=== PATIENT | female | born 1995 | race Caucasian/White ===

== ENCOUNTER 2024-11-13 09:35 | Day surgery (SDC) | payer OTHER ==
[~2024-11-13] VITALS: Ht 167.6 cm; Wt 75.3 kg
[~2024-11-13 09:35] MED LIST: AMPH1CAP16; CETI-24; HYDR-643; LEXA1TAB2; LR 1,000 ML IV SCH; PANT40TA29; SYNT25TA; VIBE75TA; VITA100093
[2024-11-13 10:06] LABS: PLATELET COUNT, AUTOMATED 296 10^3/uL (150-450)
[2024-11-13] MEDS ORDERED: ROCURONIUM BROMIDE 50MG/5ML VIAL As Ordered ONE (10:10)
[2024-11-13] MEDS ORDERED: dexAMETHasone 4 MG/ML 1 ML VIAL As Ordered ONE (10:10)
[2024-11-13] MEDS ORDERED: LIDOCAINE 2% INJ 100 MG/5 ML SYRINGE As Ordered ONE (10:10)
[2024-11-13] MEDS ORDERED: MIDAZOLAM INJ 2 MG/2 ML VIAL As Ordered ONE (10:11)
[2024-11-13] MEDS: SCOPOLAMINE 1MG TRANSDERMAL PATCH TOP ONE (10:25)
[2024-11-13] MEDS: ceFAZolin SOD 2 GM IV ONCE IV ONE (11:27)
[2024-11-13] MEDS: metroNIDAZOLE 500 MG in IV 1 EA IV ONE (11:35)
[2024-11-13] MEDS ORDERED: SUGAMMADEX SODIUM 200 MG/2 ML VIAL As Ordered ONE (11:43)
[2024-11-13] MEDS ORDERED: ONDANSETRON 4MG 2ML VIAL As Ordered ONE (11:43)
[2024-11-13] MEDS ORDERED: KETOROLAC 30 MG/ML 1 ML VIAL As Ordered ONE (11:43)
[2024-11-13] MEDS ORDERED: HYDROmorphone HCL 2 MG/ML 1 ML VIAL As Ordered ONE (12:12)
[2024-11-13] MEDS: TRANEXAMIC ACID 100 MG/ML 10ML VIAL As Ordered ONE (13:26)
[2024-11-13] MEDS ORDERED: LR 1,000 ML IV SCH (13:35)
[2024-11-13] MEDS ORDERED: HYDROMORPHONE HCL 0.5 MG/0.5 ML SYRINGE IV PRN (13:35)
[2024-11-13] MEDS ORDERED: ONDANSETRON 4MG 2ML VIAL IV PRN (13:35)
[2024-11-13 15:40] VITALS: BP 123/67; TEMP 98.3; O2SAT 100
== END 2024-11-13 15:45 | disposition home or self-care (01) ==
LOC: M SDC 09:35
PROVIDERS: ATTEND Obstetrics & Gynecology
DX: N80.329 Endometriosis of the posterior cul-de-sac, unspecified depth (principal); D25.9 Leiomyoma of uterus, unspecified; N83.8 Other noninflammatory disorders of ovary, fallopian tube and broad ligament; N80.203 Endometriosis of bilateral fallopian tubes, unspecified depth; N80.00 Endometriosis of the uterus, unspecified; N93.0 Postcoital and contact bleeding; E03.9 Hypothyroidism, unspecified; Z79.890 Hormone replacement therapy; Z79.899 Other long term (current) drug therapy; Z90.89 Acquired absence of other organs
CPT/HCPCS: 36415; 58571; 58662; 81025; 85027; 86850; 86900; 86901; 88307; J0665; J0690; J1100; J1171; J1836; J1885; J2250; J2405; J3010